=== PATIENT | male | born 1945 | race Caucasian/White ===

== ENCOUNTER 2021-08-14 18:27 | Inpatient (IN) | payer MEDICARE ==
[~2021-08-14] VITALS: Ht 182.9 cm; Wt 95.0 kg
[2021-08-14] MEDS ORDERED: TRELEGY ELLIPT1 EACH PO (18:56)
[2021-08-14] MEDS ORDERED: CRESTOR10 MG PO (18:56)
[2021-08-14] MEDS ORDERED: CLOPIDOGREL75 MG PO (18:56)
[2021-08-14] MEDS ORDERED: FLOMAX0.4 MG PO (18:56)
[2021-08-14] MEDS ORDERED: VITAMIN C1000 MG PO (18:56)
[2021-08-14] MEDS ORDERED: PREVAGEN PO (18:56)
[2021-08-14] MEDS ORDERED: PANTOPRAZOLE SO40 MG PO (18:56)
[2021-08-14] MEDS ORDERED: FEROSUL325 MG PO (18:56)
[2021-08-14] MEDS ORDERED: BASAGLAR K100 UNIT/1 SQ (18:56)
[2021-08-14] MEDS ORDERED: NEURONTIN100 MG PO (18:56)
[2021-08-14] MEDS ORDERED: ZINC PO (18:56)
[2021-08-14] MEDS ORDERED: CYMBALTA30 MG PO (18:56)
[2021-08-14] MEDS ORDERED: ENTRESTO 24 MG1 EACH PO (18:56)
[2021-08-14] MEDS ORDERED: GLIPIZIDE ER5 MG PO (18:56)
[2021-08-14 19:00] LABS: BASOPHILS # (AUTO) 0.1 (0.0-0.1); BASOPHILS % 0.6 % (0.0-1.0); EOSINOPHILS # (AUTO) 0.2 (0.0-0.4); EOSINOPHILS % 1.2 % (0.0-6.0); HEMOGLOBIN 11.2 g/dL (14.0-18.0); LYMPHOCYTES # (AUTO) 1.8 (1.0-3.2); LYMPHOCYTES % 11.8 % (18.0-39.1); MEAN CORPUSCULAR HGB CONC 31.1 g/dL (31-35); MEAN CORPUSCULAR VOLUME 83.5 fL (81-99); MONOCYTES # (AUTO) 1.6 (0.2-0.8); MONOCYTES % 10.4 % (4.4-11.3); NEUTROPHILS # (AUTO) 11.5 (2.1-6.9); NEUTROPHILS % 75.4 % (38.7-80.0); PLATELET COUNT 317 x10e3/uL (140-360); RED BLOOD COUNT 4.31 x10e6/uL (4.3-5.7); RED CELL DISTRIBUTION WIDTH 15.9 % (11.7-14.4)
[2021-08-14] MEDS ORDERED: ALBUTEROL/IPRATROPIUM 3 ML NEB NEB ONE ×2 (19:15→22:00)
[2021-08-14] MEDS ORDERED: CEFTRIAXONE 1 GM in SODIUM CHLORIDE 0.9% 50ML 50 ML IV ONE (19:15)
[2021-08-14] MEDS ORDERED: METHYLPREDNISOLONE SOD SUCC 125 MG/2ML VIAL IV ONE (19:15)
[2021-08-14 19:16] LABS: INR 1.22; PROTHROMBIN TIME 16.4 seconds (11.9-14.5)
[2021-08-14 19:17] LABS: PARTIAL THROMBOPLASTIN TIME 39.5 seconds (23.8-35.5)
[2021-08-14 19:26] LABS: ALBUMIN 2.9 g/dL (3.5-5.0); ALBUMIN/GLOBULIN RATIO 0.6 (0.8-2.0); ANION GAP 15.3 mmol/L (8-16); CALCIUM 9.2 mg/dL (8.4-10.2); CREATININE, SERUM 1.43 mg/dL (0.72-1.25); POTASSIUM 4.3 mmol/L (3.5-5.1)
[2021-08-14] MEDS ORDERED: SODIUM CHLORIDE 0.9% 1000ML 1,000 ML ONE (20:07)
[2021-08-14 20:16] LABS: CREATINE KINASE MB 0.8 ng/mL (0-5.0)
[2021-08-14] MEDS ORDERED: SODIUM CHLORIDE 0.9% 1000ML 1,000 ML IV STA (20:19)
[2021-08-14] MEDS ORDERED: DONNATAL/LIDOCAINE/MAALOX 30 ML SUSP PO ONE (21:30)
[2021-08-14] MEDS ORDERED: BELLADONNA ALK/PHENOBARBITAL 5 ML UDC ONE (22:36)
[2021-08-14] MEDS ORDERED: LIDOCAINE VISC 2% SOLN 15 ML UDC ONE (22:36)
[2021-08-14 23:01] LABS: CLARITY,URINE CLEAR (CLEAR); COLOR,URINE YELLOW (YELLOW); KETONES,URINE TRACE (NEGATIVE); LEUKOCYTE ESTERASE ,URINE NEGATIVE (NEGATIVE); NITRITE,URINE NEGATIVE (NEGATIVE); PROTEIN,URINE DIPSTICK NEGATIVE (NEGATIVE); URINE UROBILINOGEN 0.2 mg/dL (0.2 - 1)
[2021-08-14 23:07] LABS: RBC,URINE 0-5 /HPF (0-5); WBC,URINE (MAN) 0-5 /HPF (0-5)
[2021-08-14 23:08] LABS: BACTERIA,URINE FEW /HPF; EPITHELIAL CELLS,URINE FEW /LPF
[2021-08-14] MEDS ORDERED: CEFTRIAXONE 1 GM in SODIUM CHLORIDE 0.9% 50ML 50 ML IV SCH (23:45)
[2021-08-15 05:54] LABS: BASOPHILS % 0.2 % (0.0-1.0); HEMOGLOBIN 9.6 g/dL (14.0-18.0); LYMPHOCYTES # (AUTO) 0.7 (1.0-3.2); LYMPHOCYTES % 5.9 % (18.0-39.1); MEAN CORPUSCULAR HEMOGLOBIN 25.8 pg (28-32); MEAN CORPUSCULAR VOLUME 83.3 fL (81-99); MONOCYTES # (AUTO) 0.2 (0.2-0.8); MONOCYTES % 1.4 % (4.4-11.3); NEUTROPHILS # (AUTO) 10.2 (2.1-6.9); NEUTROPHILS % 92.1 % (38.7-80.0); PLATELET COUNT 245 x10e3/uL (140-360); RED BLOOD COUNT 3.72 x10e6/uL (4.3-5.7); RED CELL DISTRIBUTION WIDTH 15.9 % (11.7-14.4)
[2021-08-15 06:13] LABS: ANION GAP 14.7 mmol/L (8-16); CALCIUM 8.5 mg/dL (8.4-10.2); CREATININE, SERUM 1.36 mg/dL (0.72-1.25); POTASSIUM 4.7 mmol/L (3.5-5.1)
[2021-08-15 06:49] LABS: CREATINE KINASE MB 0.8 ng/mL (0-5.0)
[2021-08-15] MEDS ORDERED: DEXTROSE 50% SYRINGE 50 ML IV PRN (08:30)
[2021-08-15] MEDS: FERROUS SULFATE 325 MG TAB PO SCH ×2 (08:53→18:04)
[2021-08-15] MEDS: TAMSULOSIN HCL 0.4 MG CAP PO SCH (08:53)
[2021-08-15] MEDS: ASCORBIC ACID 500 MG TAB PO SCH (08:53)
[2021-08-15] MEDS: CLOPIDOGREL BISULFATE 75 MG TAB PO SCH (08:53)
[2021-08-15] MEDS: DULOXETINE HCL 30 MG DELAYED RELEASE PO SCH ×2 (08:53→18:04)
[2021-08-15] MEDS: VALSARTAN/SACUBITRIL 24MG/26MG 1 EA TAB PO SCH ×2 (09:05→18:04)
[2021-08-15] MEDS: GLIPIZIDE 5 MG TAB ER PO SCH (09:05)
[2021-08-15] MEDS: ZINC SULFATE 50 MG CAP PO SCH (09:05)
[2021-08-15] MEDS: PANTOPRAZOLE SOD 40 MG TABEC PO SCH (09:05)
[2021-08-15 11:30] VITALS: BP 113/70
[2021-08-15 12:21] VITALS: BP 113/70
[2021-08-15] MEDS: INSULIN LISPRO 100 UNIT/1 ML 3ML VIAL SQ SCH ×3 (13:45→21:15)
[2021-08-15 15:55] VITALS: BP 98/63
[2021-08-15 16:20] LABS: CREATINE KINASE MB 1.5 ng/mL (0-5.0)
[2021-08-15 20:00] VITALS: BP 107/63
[2021-08-15] MEDS: SIMVASTATIN 40 MG TAB PO SCH (21:07)
[2021-08-15] MEDS: GABAPENTIN 100 MG CAP PO SCH (21:07)
[2021-08-15] MEDS: CEFTRIAXONE 1 GM in SODIUM CHLORIDE 0.9% 50ML 50 ML IV SCH (21:07)
[2021-08-15 21:30] VITALS: BP 107/63
[2021-08-16] VITALS (8 sets, daily range): BP systolic 90–101; BP diastolic 53–69
[2021-08-16] MEDS: PANTOPRAZOLE SOD 40 MG TABEC PO SCH (09:44)
[2021-08-16] MEDS: VALSARTAN/SACUBITRIL 24MG/26MG 1 EA TAB PO SCH ×2 (09:45→18:04)
[2021-08-16] MEDS: DULOXETINE HCL 30 MG DELAYED RELEASE PO SCH ×2 (09:45→18:04)
[2021-08-16] MEDS: ASCORBIC ACID 500 MG TAB PO SCH (09:45)
[2021-08-16] MEDS: INSULIN LISPRO 100 UNIT/1 ML 3ML VIAL SQ SCH ×4 (09:45→20:36)
[2021-08-16] MEDS: GLIPIZIDE 5 MG TAB ER PO SCH (09:45)
[2021-08-16] MEDS: FUROSEMIDE INJ 10 MG/ML 2 ML VIAL IV SCH ×2 (09:45→18:04)
[2021-08-16] MEDS: TAMSULOSIN HCL 0.4 MG CAP PO SCH (09:45)
[2021-08-16] MEDS: CLOPIDOGREL BISULFATE 75 MG TAB PO SCH (09:45)
[2021-08-16] MEDS: ZINC SULFATE 50 MG CAP PO SCH (09:45)
[2021-08-16] MEDS: FERROUS SULFATE 325 MG TAB PO SCH ×2 (09:45→18:04)
[2021-08-16] MEDS ORDERED: DONNATAL/LIDOCAINE/MAALOX 30 ML SUSP PO ONE (13:30)
[2021-08-16] MEDS: METOPROLOL SUCCINATE 25 MG TAB XL PO SCH (14:00)
[2021-08-16] MEDS: SIMVASTATIN 40 MG TAB PO SCH (20:35)
[2021-08-16] MEDS: GABAPENTIN 100 MG CAP PO SCH (20:35)
[2021-08-16] MEDS: CEFTRIAXONE 1 GM in SODIUM CHLORIDE 0.9% 50ML 50 ML IV SCH (20:35)
[2021-08-17] VITALS (7 sets, daily range): BP systolic 91–97; BP diastolic 53–66
[2021-08-17] MEDS: CALCIUM CARBONATE 500 MG CHEWABLE TABS PO PRN (01:03)
[2021-08-17] MEDS: ACETAMINOPHEN 325 MG TAB PO PRN ×2 (01:03→20:01)
[2021-08-17] MEDS: INSULIN LISPRO 100 UNIT/1 ML 3ML VIAL SQ SCH ×4 (07:30→21:00)
[2021-08-17] MEDS: PANTOPRAZOLE SOD 40 MG TABEC PO SCH (08:52)
[2021-08-17] MEDS: GLIPIZIDE 5 MG TAB ER PO SCH (08:53)
[2021-08-17] MEDS: CLOPIDOGREL BISULFATE 75 MG TAB PO SCH (09:00)
[2021-08-17] MEDS: DULOXETINE HCL 30 MG DELAYED RELEASE PO SCH ×2 (09:00→17:00)
[2021-08-17] MEDS: ASCORBIC ACID 500 MG TAB PO SCH (09:00)
[2021-08-17] MEDS: FERROUS SULFATE 325 MG TAB PO SCH ×2 (09:00→17:00)
[2021-08-17] MEDS: TAMSULOSIN HCL 0.4 MG CAP PO SCH (09:00)
[2021-08-17] MEDS: FUROSEMIDE INJ 10 MG/ML 2 ML VIAL IV SCH ×2 (09:00→17:00)
[2021-08-17] MEDS: VALSARTAN/SACUBITRIL 24MG/26MG 1 EA TAB PO SCH ×2 (09:00→17:00)
[2021-08-17] MEDS: ZINC SULFATE 50 MG CAP PO SCH (09:00)
[2021-08-17] MEDS: METOPROLOL SUCCINATE 25 MG TAB XL PO SCH (09:00)
[2021-08-17] MEDS: CEFTRIAXONE 1 GM in SODIUM CHLORIDE 0.9% 50ML 50 ML IV SCH (20:00)
[2021-08-17] MEDS: SIMVASTATIN 40 MG TAB PO SCH (21:00)
[2021-08-17] MEDS: GABAPENTIN 100 MG CAP PO SCH (21:00)
[2021-08-18] VITALS (10 sets, daily range): BP systolic 87–104; BP diastolic 46–64
[2021-08-18 05:17] LABS: BASOPHILS # (AUTO) 0.1 (0.0-0.1); BASOPHILS % 0.6 % (0.0-1.0); EOSINOPHILS # (AUTO) 0.3 (0.0-0.4); EOSINOPHILS % 2.7 % (0.0-6.0); HEMATOCRIT 34.2 % (38.2-49.6); HEMOGLOBIN 10.1 g/dL (14.0-18.0); LYMPHOCYTES # (AUTO) 1.9 (1.0-3.2); LYMPHOCYTES % 15.3 % (18.0-39.1); MEAN CORPUSCULAR HEMOGLOBIN 25.7 pg (28-32); MEAN CORPUSCULAR HGB CONC 29.5 g/dL (31-35); MONOCYTES # (AUTO) 1.3 (0.2-0.8); MONOCYTES % 10.1 % (4.4-11.3); NEUTROPHILS # (AUTO) 8.9 (2.1-6.9); NEUTROPHILS % 70.7 % (38.7-80.0); PLATELET COUNT 227 x10e3/uL (140-360); RED BLOOD COUNT 3.93 x10e6/uL (4.3-5.7)
[2021-08-18 05:49] LABS: ALBUMIN 2.5 g/dL (3.5-5.0); ALBUMIN/GLOBULIN RATIO 0.7 (0.8-2.0); ANION GAP 14.8 mmol/L (8-16); CALCIUM 8.3 mg/dL (8.4-10.2); CREATININE, SERUM 1.08 mg/dL (0.72-1.25); POTASSIUM 3.8 mmol/L (3.5-5.1)
[2021-08-18] MEDS: PANTOPRAZOLE SOD 40 MG TABEC PO SCH (07:30)
[2021-08-18] MEDS: INSULIN LISPRO 100 UNIT/1 ML 3ML VIAL SQ SCH ×4 (07:30→21:00)
[2021-08-18] MEDS: GLIPIZIDE 5 MG TAB ER PO SCH (08:00)
[2021-08-18] MEDS: TAMSULOSIN HCL 0.4 MG CAP PO SCH (08:56)
[2021-08-18] MEDS: CLOPIDOGREL BISULFATE 75 MG TAB PO SCH (08:56)
[2021-08-18] MEDS: METOPROLOL SUCCINATE 25 MG TAB XL PO SCH (08:56)
[2021-08-18] MEDS: ZINC SULFATE 50 MG CAP PO SCH (08:57)
[2021-08-18] MEDS: ASCORBIC ACID 500 MG TAB PO SCH (08:57)
[2021-08-18] MEDS: DULOXETINE HCL 30 MG DELAYED RELEASE PO SCH ×2 (09:00→17:00)
[2021-08-18] MEDS: FERROUS SULFATE 325 MG TAB PO SCH ×2 (09:00→17:00)
[2021-08-18] MEDS: FUROSEMIDE INJ 10 MG/ML 2 ML VIAL IV SCH (09:00)
[2021-08-18] MEDS: VALSARTAN/SACUBITRIL 24MG/26MG 1 EA TAB PO SCH ×2 (09:00→17:00)
[2021-08-18] MEDS: ACETAMINOPHEN 325 MG TAB PO PRN (18:09)
[2021-08-18] MEDS: CEFTRIAXONE 1 GM in SODIUM CHLORIDE 0.9% 50ML 50 ML IV SCH (21:09)
[2021-08-18] MEDS: GABAPENTIN 100 MG CAP PO SCH (21:15)
[2021-08-18] MEDS: SIMVASTATIN 40 MG TAB PO SCH (21:15)
[2021-08-19 04:59] VITALS: BP 96/50
[2021-08-19 04:59] LABS: BASOPHILS # (AUTO) 0.1 (0.0-0.1); BASOPHILS % 0.6 % (0.0-1.0); EOSINOPHILS # (AUTO) 0.4 (0.0-0.4); EOSINOPHILS % 3.1 % (0.0-6.0); HEMATOCRIT 30.8 % (38.2-49.6); HEMOGLOBIN 9.4 g/dL (14.0-18.0); LYMPHOCYTES # (AUTO) 1.9 (1.0-3.2); LYMPHOCYTES % 14.8 % (18.0-39.1); MEAN CORPUSCULAR HEMOGLOBIN 25.8 pg (28-32); MEAN CORPUSCULAR HGB CONC 30.5 g/dL (31-35); MEAN CORPUSCULAR VOLUME 84.4 fL (81-99); MONOCYTES # (AUTO) 1.1 (0.2-0.8); MONOCYTES % 8.7 % (4.4-11.3); NEUTROPHILS # (AUTO) 9.4 (2.1-6.9); NEUTROPHILS % 72.3 % (38.7-80.0); PLATELET COUNT 217 x10e3/uL (140-360); RED BLOOD COUNT 3.65 x10e6/uL (4.3-5.7); RED CELL DISTRIBUTION WIDTH 15.8 % (11.7-14.4)
[2021-08-19 05:28] LABS: ALBUMIN 2.4 g/dL (3.5-5.0); ALBUMIN/GLOBULIN RATIO 0.6 (0.8-2.0); ANION GAP 13.7 mmol/L (8-16); CALCIUM 8.5 mg/dL (8.4-10.2); CREATININE, SERUM 1.23 mg/dL (0.72-1.25); POTASSIUM 3.7 mmol/L (3.5-5.1)
[2021-08-19] MEDS: INSULIN LISPRO 100 UNIT/1 ML 3ML VIAL SQ SCH ×4 (07:30→21:00)
[2021-08-19 08:45] VITALS: BP 94/60
[2021-08-19 08:49] VITALS: BP 94/60
[2021-08-19] MEDS: METOPROLOL SUCCINATE 25 MG TAB XL PO SCH (09:00)
[2021-08-19] MEDS: PANTOPRAZOLE SOD 40 MG TABEC PO SCH (09:06)
[2021-08-19] MEDS: GLIPIZIDE 5 MG TAB ER PO SCH (09:06)
[2021-08-19] MEDS: DULOXETINE HCL 30 MG DELAYED RELEASE PO SCH ×2 (09:06→17:24)
[2021-08-19] MEDS: CLOPIDOGREL BISULFATE 75 MG TAB PO SCH (09:07)
[2021-08-19] MEDS: TAMSULOSIN HCL 0.4 MG CAP PO SCH (09:07)
[2021-08-19] MEDS: ASCORBIC ACID 500 MG TAB PO SCH (09:07)
[2021-08-19] MEDS: ZINC SULFATE 50 MG CAP PO SCH (09:07)
[2021-08-19] MEDS: FERROUS SULFATE 325 MG TAB PO SCH ×2 (09:09→17:24)
[2021-08-19] MEDS: ACETAMINOPHEN 325 MG TAB PO PRN ×2 (09:13→22:45)
[2021-08-19 12:03] VITALS: BP 86/62
[2021-08-19] MEDS ORDERED: MIDODRINE HCL 5 MG TABLET PO SCH (15:45)
[2021-08-19 16:44] VITALS: BP 107/53
[2021-08-19 19:47] VITALS: BP 108/54
[2021-08-19] MEDS: CEFTRIAXONE 1 GM in SODIUM CHLORIDE 0.9% 50ML 50 ML IV SCH (20:50)
[2021-08-19] MEDS: GABAPENTIN 100 MG CAP PO SCH (21:00)
[2021-08-19] MEDS: SIMVASTATIN 40 MG TAB PO SCH (21:00)
[2021-08-19] MEDS ORDERED: MIDODRINE 2.5 MG TAB PO ONE (23:15)
[2021-08-20] VITALS (8 sets, daily range): BP systolic 90–116; BP diastolic 60–73
[2021-08-20 05:01] LABS: HEMATOCRIT 30.8 % (38.2-49.6); HEMOGLOBIN 9.4 g/dL (14.0-18.0); MEAN CORPUSCULAR HEMOGLOBIN 25.8 pg (28-32); MEAN CORPUSCULAR HGB CONC 30.5 g/dL (31-35); MEAN CORPUSCULAR VOLUME 84.4 fL (81-99); RED BLOOD COUNT 3.65 x10e6/uL (4.3-5.7); RED CELL DISTRIBUTION WIDTH 15.9 % (11.7-14.4)
[2021-08-20 05:02] LABS: BASOPHILS # (AUTO) 0.1 (0.0-0.1); BASOPHILS % 0.7 % (0.0-1.0); EOSINOPHILS # (AUTO) 0.4 (0.0-0.4); EOSINOPHILS % 3.5 % (0.0-6.0); LYMPHOCYTES # (AUTO) 1.9 (1.0-3.2); LYMPHOCYTES % 15.2 % (18.0-39.1); MONOCYTES # (AUTO) 1.3 (0.2-0.8); MONOCYTES % 10.2 % (4.4-11.3); NEUTROPHILS # (AUTO) 8.6 (2.1-6.9); NEUTROPHILS % 69.8 % (38.7-80.0); PLATELET COUNT 209 x10e3/uL (140-360)
[2021-08-20 05:42] LABS: ALBUMIN 2.4 g/dL (3.5-5.0); ALBUMIN/GLOBULIN RATIO 0.6 (0.8-2.0); ANION GAP 14.1 mmol/L (8-16); CALCIUM 8.4 mg/dL (8.4-10.2); CREATININE, SERUM 1.28 mg/dL (0.72-1.25); POTASSIUM 4.1 mmol/L (3.5-5.1)
[2021-08-20] MEDS: INSULIN LISPRO 100 UNIT/1 ML 3ML VIAL SQ SCH ×4 (07:30→20:56)
[2021-08-20] MEDS: FERROUS SULFATE 325 MG TAB PO SCH ×2 (09:30→16:57)
[2021-08-20] MEDS: DULOXETINE HCL 30 MG DELAYED RELEASE PO SCH ×2 (09:30→16:57)
[2021-08-20] MEDS: CLOPIDOGREL BISULFATE 75 MG TAB PO SCH (09:30)
[2021-08-20] MEDS: METOPROLOL SUCCINATE 25 MG TAB XL PO SCH (09:30)
[2021-08-20] MEDS: ASCORBIC ACID 500 MG TAB PO SCH (09:30)
[2021-08-20] MEDS: PANTOPRAZOLE SOD 40 MG TABEC PO SCH (09:30)
[2021-08-20] MEDS: TAMSULOSIN HCL 0.4 MG CAP PO SCH (09:30)
[2021-08-20] MEDS: GLIPIZIDE 5 MG TAB ER PO SCH (09:30)
[2021-08-20] MEDS: ZINC SULFATE 50 MG CAP PO SCH (09:30)
[2021-08-20] MEDS ORDERED: SODIUM CHLORIDE 0.9% 250ML 250 ML ONE (20:14)
[2021-08-20] MEDS: GABAPENTIN 100 MG CAP PO SCH (20:56)
[2021-08-20] MEDS: SIMVASTATIN 40 MG TAB PO SCH (20:56)
[2021-08-20] MEDS: CEFTRIAXONE 1 GM in SODIUM CHLORIDE 0.9% 50ML 50 ML IV SCH (21:00)
[2021-08-20] MEDS: HYDROXYZINE HCL 25 MG TAB PO PRN (21:47)
[2021-08-20] MEDS: CALCIUM CARBONATE 500 MG CHEWABLE TABS PO PRN (21:47)
[2021-08-21] VITALS (9 sets, daily range): BP systolic 89–118; BP diastolic 54–66
[2021-08-21] MEDS: INSULIN LISPRO 100 UNIT/1 ML 3ML VIAL SQ SCH ×4 (07:30→20:16)
[2021-08-21] MEDS: CLOPIDOGREL BISULFATE 75 MG TAB PO SCH (09:27)
[2021-08-21] MEDS: FERROUS SULFATE 325 MG TAB PO SCH ×2 (09:27→16:16)
[2021-08-21] MEDS: DULOXETINE HCL 30 MG DELAYED RELEASE PO SCH ×2 (09:27→16:16)
[2021-08-21] MEDS: PANTOPRAZOLE SOD 40 MG TABEC PO SCH (09:27)
[2021-08-21] MEDS: METOPROLOL SUCCINATE 25 MG TAB XL PO SCH (09:27)
[2021-08-21] MEDS: GLIPIZIDE 5 MG TAB ER PO SCH (09:27)
[2021-08-21] MEDS: TAMSULOSIN HCL 0.4 MG CAP PO SCH (09:27)
[2021-08-21] MEDS: ZINC SULFATE 50 MG CAP PO SCH (09:28)
[2021-08-21] MEDS: ASCORBIC ACID 500 MG TAB PO SCH (09:28)
[2021-08-21] MEDS: ALBUTEROL/IPRATROPIUM 3 ML NEB NEB PRN ×3 (09:43→18:48)
[2021-08-21] MEDS: CALCIUM CARBONATE 500 MG CHEWABLE TABS PO PRN (13:50)
[2021-08-21] MEDS: CEFTRIAXONE 1 GM in SODIUM CHLORIDE 0.9% 50ML 50 ML IV SCH (20:00)
[2021-08-21] MEDS: GABAPENTIN 100 MG CAP PO SCH (20:16)
[2021-08-21] MEDS: SIMVASTATIN 40 MG TAB PO SCH (20:16)
[2021-08-21] MEDS: HYDROXYZINE HCL 25 MG TAB PO PRN (22:39)
[2021-08-22] VITALS (11 sets, daily range): BP systolic 97–142; BP diastolic 50–88
[2021-08-22 05:07] LABS: INR 1.16; PROTHROMBIN TIME 15.7 seconds (11.9-14.5)
[2021-08-22 05:08] LABS: PARTIAL THROMBOPLASTIN TIME 43.7 seconds (23.8-35.5)
[2021-08-22] MEDS: INSULIN LISPRO 100 UNIT/1 ML 3ML VIAL SQ SCH ×4 (07:30→21:06)
[2021-08-22] MEDS: PANTOPRAZOLE SOD 40 MG TABEC PO SCH (07:30)
[2021-08-22] MEDS: GLIPIZIDE 5 MG TAB ER PO SCH (08:00)
[2021-08-22] MEDS: DULOXETINE HCL 30 MG DELAYED RELEASE PO SCH ×2 (08:21→15:24)
[2021-08-22] MEDS: FERROUS SULFATE 325 MG TAB PO SCH ×2 (08:22→15:24)
[2021-08-22] MEDS ORDERED: HEPARIN SOD (PORCINE) 1000 UNIT/ML 30ML ONE (10:43)
[2021-08-22] MEDS ORDERED: LIDOCAINE HCL 2% LOCAL 20 ML VIAL ONE (10:43)
[2021-08-22] MEDS ORDERED: NITROGLYCERIN/D5W 200 MCG/ML 250 ML ONE (10:43)
[2021-08-22] MEDS ORDERED: IOPAMIDOL 370 MG/ML 200 ML INFUS..BTL INJ ONE (10:43)
[2021-08-22] MEDS ORDERED: MIDAZOLAM HCL 2 MG/2 ML VIAL ONE (10:43)
[2021-08-22] MEDS ORDERED: SODIUM CHLORIDE 0.9% 1000ML 1,000 ML ONE (10:43)
[2021-08-22] MEDS ORDERED: HEPARIN SOD/SOD CHLORIDE 2,000 ML ONE (10:43)
[2021-08-22] MEDS ORDERED: FENTANYL CITRATE/PF 100MCG/2 ML INJ ONE (10:43)
[2021-08-22] MEDS: FUROSEMIDE INJ 10 MG/ML 4 ML VIAL IV SCH (15:24)
[2021-08-22] MEDS: TAMSULOSIN HCL 0.4 MG CAP PO SCH (15:24)
[2021-08-22] MEDS: ASCORBIC ACID 500 MG TAB PO SCH (15:24)
[2021-08-22] MEDS: ZINC SULFATE 50 MG CAP PO SCH (15:24)
[2021-08-22] MEDS: SUCRALFATE 1 GM TAB PO SCH (16:23)
[2021-08-22] MEDS: METOPROLOL SUCCINATE 25 MG TAB XL PO SCH (16:23)
[2021-08-22] MEDS: GABAPENTIN 100 MG CAP PO SCH (20:15)
[2021-08-22] MEDS: SIMVASTATIN 40 MG TAB PO SCH (20:15)
[2021-08-22] MEDS: CEFTRIAXONE 1 GM in SODIUM CHLORIDE 0.9% 50ML 50 ML IV SCH (20:17)
[2021-08-23] VITALS (7 sets, daily range): BP systolic 87–125; BP diastolic 49–63
[2021-08-23] MEDS: INSULIN LISPRO 100 UNIT/1 ML 3ML VIAL SQ SCH ×4 (07:30→20:52)
[2021-08-23] MEDS: TAMSULOSIN HCL 0.4 MG CAP PO SCH (09:23)
[2021-08-23] MEDS: PANTOPRAZOLE SOD 40 MG TABEC PO SCH (09:23)
[2021-08-23] MEDS: FUROSEMIDE INJ 10 MG/ML 4 ML VIAL IV SCH (09:23)
[2021-08-23] MEDS: SUCRALFATE 1 GM TAB PO SCH ×3 (09:23→16:30)
[2021-08-23] MEDS: FERROUS SULFATE 325 MG TAB PO SCH ×2 (09:23→17:16)
[2021-08-23] MEDS: GLIPIZIDE 5 MG TAB ER PO SCH (09:23)
[2021-08-23] MEDS: ASCORBIC ACID 500 MG TAB PO SCH (09:24)
[2021-08-23] MEDS: METOPROLOL SUCCINATE 25 MG TAB XL PO SCH (09:24)
[2021-08-23] MEDS: DULOXETINE HCL 30 MG DELAYED RELEASE PO SCH ×2 (09:24→17:16)
[2021-08-23] MEDS: ZINC SULFATE 50 MG CAP PO SCH (09:24)
[2021-08-23] MEDS: CEFTRIAXONE 1 GM in SODIUM CHLORIDE 0.9% 50ML 50 ML IV SCH (20:51)
[2021-08-23] MEDS: GABAPENTIN 100 MG CAP PO SCH (20:51)
[2021-08-23] MEDS: SIMVASTATIN 40 MG TAB PO SCH (20:51)
[2021-08-23] MEDS: HYDROXYZINE HCL 25 MG TAB PO PRN (22:59)
[2021-08-24] VITALS (8 sets, daily range): BP systolic 87–111; BP diastolic 49–69
[2021-08-24] MEDS: INSULIN LISPRO 100 UNIT/1 ML 3ML VIAL SQ SCH ×4 (07:30→21:00)
[2021-08-24] MEDS: SUCRALFATE 1 GM TAB PO SCH ×3 (07:30→15:49)
[2021-08-24] MEDS: PANTOPRAZOLE SOD 40 MG TABEC PO SCH (07:30)
[2021-08-24] MEDS: GLIPIZIDE 5 MG TAB ER PO SCH (08:00)
[2021-08-24] MEDS: DULOXETINE HCL 30 MG DELAYED RELEASE PO SCH ×2 (09:00→15:44)
[2021-08-24] MEDS: ZINC SULFATE 50 MG CAP PO SCH (09:00)
[2021-08-24] MEDS: FERROUS SULFATE 325 MG TAB PO SCH ×2 (09:00→15:45)
[2021-08-24] MEDS: ASCORBIC ACID 500 MG TAB PO SCH (09:00)
[2021-08-24] MEDS: FUROSEMIDE INJ 10 MG/ML 4 ML VIAL IV SCH (09:00)
[2021-08-24] MEDS: METOPROLOL SUCCINATE 25 MG TAB XL PO SCH (09:00)
[2021-08-24] MEDS: TAMSULOSIN HCL 0.4 MG CAP PO SCH (15:45)
[2021-08-24] MEDS: BENZONATATE 100 MG CAP PO SCH ×2 (15:46→20:28)
[2021-08-24] MEDS: ALBUTEROL/IPRATROPIUM 3 ML NEB NEB PRN (19:35)
[2021-08-24] MEDS: GABAPENTIN 100 MG CAP PO SCH (20:28)
[2021-08-24] MEDS: SIMVASTATIN 40 MG TAB PO SCH (20:28)
[2021-08-24] MEDS: CEFTRIAXONE 1 GM in SODIUM CHLORIDE 0.9% 50ML 50 ML IV SCH (21:00)
[2021-08-25] VITALS (13 sets, daily range): BP systolic 84–103; BP diastolic 51–69
[2021-08-25] MEDS: ALBUTEROL/IPRATROPIUM 3 ML NEB NEB PRN ×2 (07:17→13:20)
[2021-08-25] MEDS: PANTOPRAZOLE SOD 40 MG TABEC PO SCH (07:30)
[2021-08-25] MEDS: INSULIN LISPRO 100 UNIT/1 ML 3ML VIAL SQ SCH ×4 (07:30→21:02)
[2021-08-25] MEDS: SUCRALFATE 1 GM TAB PO SCH ×3 (07:30→17:03)
[2021-08-25] MEDS: GLIPIZIDE 5 MG TAB ER PO SCH (08:00)
[2021-08-25] MEDS: FUROSEMIDE INJ 10 MG/ML 4 ML VIAL IV SCH (08:34)
[2021-08-25] MEDS: TAMSULOSIN HCL 0.4 MG CAP PO SCH (09:00)
[2021-08-25] MEDS: METOPROLOL SUCCINATE 25 MG TAB XL PO SCH (09:00)
[2021-08-25] MEDS: FERROUS SULFATE 325 MG TAB PO SCH ×2 (09:00→17:03)
[2021-08-25] MEDS: ASCORBIC ACID 500 MG TAB PO SCH (09:00)
[2021-08-25] MEDS ORDERED: FUROSEMIDE INJ 10 MG/ML 4 ML VIAL IV ONE ×2 (09:00→19:35)
[2021-08-25] MEDS: DULOXETINE HCL 30 MG DELAYED RELEASE PO SCH ×2 (09:00→17:03)
[2021-08-25] MEDS: BENZONATATE 100 MG CAP PO SCH ×3 (09:00→21:01)
[2021-08-25] MEDS: ZINC SULFATE 50 MG CAP PO SCH (09:00)
[2021-08-25] MEDS ORDERED: MIDAZOLAM HCL 2 MG/2 ML VIAL ONE ×2 (10:04→12:06)
[2021-08-25] MEDS ORDERED: FENTANYL CITRATE/PF 100MCG/2 ML INJ ONE ×2 (10:05→12:06)
[2021-08-25] MEDS ORDERED: GENTAMICIN SULFATE 40 MG/ML 2 ML VIAL ONE ×2 (10:05→10:59)
[2021-08-25] MEDS ORDERED: LIDOCAINE HCL 2% LOCAL 20 ML VIAL ONE (10:05)
[2021-08-25] MEDS ORDERED: SODIUM CHLORIDE 0.9% 1000ML 2,000 ML ONE (10:06)
[2021-08-25] MEDS ORDERED: Vancomycin IV 1 GM VIAL ONE (10:06)
[2021-08-25] MEDS ORDERED: SODIUM CHLORIDE 0.9% 500ML 500 ML ONE (10:06)
[2021-08-25] MEDS ORDERED: SODIUM CHLORIDE 0.9% 250ML 250 ML ONE (10:06)
[2021-08-25] MEDS ORDERED: IOPAMIDOL 300MG/ML 50ML INFUS..BTL IV ONE (10:16)
[2021-08-25 10:27] LABS: BASOPHILS # (AUTO) 0.1 (0.0-0.1); BASOPHILS % 0.6 % (0.0-1.0); EOSINOPHILS # (AUTO) 0.3 (0.0-0.4); EOSINOPHILS % 2.7 % (0.0-6.0); HEMATOCRIT 29.4 % (38.2-49.6); HEMOGLOBIN 8.9 g/dL (14.0-18.0); LYMPHOCYTES # (AUTO) 1.3 (1.0-3.2); LYMPHOCYTES % 12.6 % (18.0-39.1); MEAN CORPUSCULAR HEMOGLOBIN 25.6 pg (28-32); MEAN CORPUSCULAR HGB CONC 30.3 g/dL (31-35); MEAN CORPUSCULAR VOLUME 84.7 fL (81-99); MONOCYTES % 10.2 % (4.4-11.3); NEUTROPHILS # (AUTO) 7.5 (2.1-6.9); NEUTROPHILS % 73.4 % (38.7-80.0); PLATELET COUNT 241 x10e3/uL (140-360); RED BLOOD COUNT 3.47 x10e6/uL (4.3-5.7); RED CELL DISTRIBUTION WIDTH 16.9 % (11.7-14.4)
[2021-08-25 10:50] LABS: ALBUMIN 2.6 g/dL (3.5-5.0); ALBUMIN/GLOBULIN RATIO 0.7 (0.8-2.0); ANION GAP 14.6 mmol/L (8-16); CALCIUM 8.4 mg/dL (8.4-10.2); CREATININE, SERUM 1.19 mg/dL (0.72-1.25); POTASSIUM 3.6 mmol/L (3.5-5.1)
[2021-08-25] MEDS ORDERED: Morphine 2mg Syringe 2 MG/ML SYR IV PRN (12:45)
[2021-08-25] MEDS: GABAPENTIN 100 MG CAP PO SCH (21:01)
[2021-08-25] MEDS: SIMVASTATIN 40 MG TAB PO SCH (21:01)
[2021-08-25] MEDS ORDERED: SODIUM CHLORIDE 0.9% 200 ML ONE (21:02)
[2021-08-26] VITALS (21 sets, daily range): BP systolic 87–139; BP diastolic 49–91
[2021-08-26] MEDS: INSULIN LISPRO 100 UNIT/1 ML 3ML VIAL SQ SCH ×4 (07:30→21:00)
[2021-08-26] MEDS: PANTOPRAZOLE SOD 40 MG TABEC PO SCH (07:58)
[2021-08-26] MEDS: SUCRALFATE 1 GM TAB PO SCH ×3 (07:58→16:30)
[2021-08-26] MEDS: DULOXETINE HCL 30 MG DELAYED RELEASE PO SCH ×2 (08:34→17:02)
[2021-08-26] MEDS: FERROUS SULFATE 325 MG TAB PO SCH ×2 (08:34→17:02)
[2021-08-26] MEDS: TAMSULOSIN HCL 0.4 MG CAP PO SCH (08:35)
[2021-08-26] MEDS: BENZONATATE 100 MG CAP PO SCH ×3 (08:35→21:00)
[2021-08-26] MEDS: ZINC SULFATE 50 MG CAP PO SCH (08:36)
[2021-08-26] MEDS: ASCORBIC ACID 500 MG TAB PO SCH (08:36)
[2021-08-26] MEDS: GLIPIZIDE 5 MG TAB ER PO SCH (08:39)
[2021-08-26] MEDS: METOPROLOL SUCCINATE 25 MG TAB XL PO SCH (08:43)
[2021-08-26] MEDS: FUROSEMIDE INJ 10 MG/ML 4 ML VIAL IV SCH (08:43)
[2021-08-26] MEDS: ACETAMINOPHEN 325 MG TAB PO PRN ×3 (09:37→21:00)
[2021-08-26] MEDS ORDERED: FUROSEMIDE INJ 10 MG/ML 4 ML VIAL IV ONE (17:00)
[2021-08-26] MEDS ORDERED: VASOPRESSIN 60 UNIT in DEXTROSE 5% 50ML 57 ML IV PRN (17:00)
[2021-08-26] MEDS ORDERED: FUROSEMIDE INJ 10 MG/ML 4 ML VIAL ONE (17:04)
[2021-08-26] MEDS: GABAPENTIN 100 MG CAP PO SCH (20:59)
[2021-08-26] MEDS: SIMVASTATIN 40 MG TAB PO SCH (21:00)
[2021-08-27] VITALS (25 sets, daily range): BP systolic 80–145; BP diastolic 44–114
[2021-08-27 05:47] LABS: BASOPHILS # (AUTO) 0.1 (0.0-0.1); BASOPHILS % 0.5 % (0.0-1.0); EOSINOPHILS # (AUTO) 0.4 (0.0-0.4); EOSINOPHILS % 3.3 % (0.0-6.0); HEMATOCRIT 28.4 % (38.2-49.6); HEMOGLOBIN 8.5 g/dL (14.0-18.0); LYMPHOCYTES # (AUTO) 1.3 (1.0-3.2); LYMPHOCYTES % 9.9 % (18.0-39.1); MEAN CORPUSCULAR HEMOGLOBIN 25.2 pg (28-32); MEAN CORPUSCULAR HGB CONC 29.9 g/dL (31-35); MEAN CORPUSCULAR VOLUME 84.3 fL (81-99); MONOCYTES # (AUTO) 1.4 (0.2-0.8); MONOCYTES % 10.6 % (4.4-11.3); NEUTROPHILS # (AUTO) 9.6 (2.1-6.9); NEUTROPHILS % 75.2 % (38.7-80.0); PLATELET COUNT 259 x10e3/uL (140-360); RED BLOOD COUNT 3.37 x10e6/uL (4.3-5.7); RED CELL DISTRIBUTION WIDTH 17.2 % (11.7-14.4)
[2021-08-27 06:13] LABS: ALBUMIN 2.3 g/dL (3.5-5.0); ALBUMIN/GLOBULIN RATIO 0.6 (0.8-2.0); ANION GAP 15.5 mmol/L (8-16); CALCIUM 8.7 mg/dL (8.4-10.2); CREATININE, SERUM 1.06 mg/dL (0.72-1.25); POTASSIUM 3.5 mmol/L (3.5-5.1)
[2021-08-27] MEDS: PANTOPRAZOLE SOD 40 MG TABEC PO SCH (08:40)
[2021-08-27] MEDS: SUCRALFATE 1 GM TAB PO SCH ×3 (08:40→16:33)
[2021-08-27] MEDS: GLIPIZIDE 5 MG TAB ER PO SCH (08:41)
[2021-08-27] MEDS: DULOXETINE HCL 30 MG DELAYED RELEASE PO SCH ×2 (08:43→16:33)
[2021-08-27] MEDS: FUROSEMIDE INJ 10 MG/ML 4 ML VIAL IV SCH (08:43)
[2021-08-27] MEDS: ZINC SULFATE 50 MG CAP PO SCH (08:44)
[2021-08-27] MEDS: METOPROLOL SUCCINATE 25 MG TAB XL PO SCH (08:44)
[2021-08-27] MEDS: BENZONATATE 100 MG CAP PO SCH ×3 (08:44→20:58)
[2021-08-27] MEDS: ASCORBIC ACID 500 MG TAB PO SCH (08:44)
[2021-08-27] MEDS: FERROUS SULFATE 325 MG TAB PO SCH ×2 (08:44→16:33)
[2021-08-27] MEDS: TAMSULOSIN HCL 0.4 MG CAP PO SCH (08:44)
[2021-08-27] MEDS ORDERED: POTASSIUM CHLORIDE 20MEQ/100ML 200 ML IV ONE (09:15)
[2021-08-27] MEDS: INSULIN LISPRO 100 UNIT/1 ML 3ML VIAL SQ SCH ×4 (09:24→21:04)
[2021-08-27] MEDS ORDERED: SODIUM CHLORIDE 0.9% 250ML 250 ML ONE (10:17)
[2021-08-27] MEDS ORDERED: FUROSEMIDE INJ 10 MG/ML 4 ML VIAL IV ONE (18:00)
[2021-08-27] MEDS: ALBUTEROL/IPRATROPIUM 3 ML NEB NEB PRN (18:30)
[2021-08-27] MEDS: GABAPENTIN 100 MG CAP PO SCH (20:58)
[2021-08-27] MEDS: SIMVASTATIN 40 MG TAB PO SCH (20:58)
[2021-08-27] MEDS: HYDROXYZINE HCL 25 MG TAB PO PRN (20:58)
[2021-08-28] VITALS (23 sets, daily range): BP systolic 95–134; BP diastolic 50–112
[2021-08-28 06:11] LABS: BASOPHILS # (AUTO) 0.1 (0.0-0.1); BASOPHILS % 0.3 % (0.0-1.0); EOSINOPHILS # (AUTO) 0.2 (0.0-0.4); EOSINOPHILS % 0.9 % (0.0-6.0); HEMATOCRIT 28.9 % (38.2-49.6); LYMPHOCYTES # (AUTO) 1.1 (1.0-3.2); LYMPHOCYTES % 6.3 % (18.0-39.1); MEAN CORPUSCULAR HEMOGLOBIN 25.6 pg (28-32); MEAN CORPUSCULAR HGB CONC 31.1 g/dL (31-35); MEAN CORPUSCULAR VOLUME 82.3 fL (81-99); MONOCYTES # (AUTO) 1.7 (0.2-0.8); MONOCYTES % 9.7 % (4.4-11.3); NEUTROPHILS # (AUTO) 14.2 (2.1-6.9); NEUTROPHILS % 82.2 % (38.7-80.0); PLATELET COUNT 296 x10e3/uL (140-360); RED BLOOD COUNT 3.51 x10e6/uL (4.3-5.7)
[2021-08-28 06:41] LABS: ALBUMIN 2.3 g/dL (3.5-5.0); ALBUMIN/GLOBULIN RATIO 0.5 (0.8-2.0); ANION GAP 16.7 mmol/L (8-16); CALCIUM 8.9 mg/dL (8.4-10.2); CREATININE, SERUM 1.13 mg/dL (0.72-1.25); POTASSIUM 3.7 mmol/L (3.5-5.1)
[2021-08-28] MEDS: FERROUS SULFATE 325 MG TAB PO SCH ×2 (07:56→16:45)
[2021-08-28] MEDS: PANTOPRAZOLE SOD 40 MG TABEC PO SCH (07:56)
[2021-08-28] MEDS: METOPROLOL SUCCINATE 25 MG TAB XL PO SCH (07:56)
[2021-08-28] MEDS: GLIPIZIDE 5 MG TAB ER PO SCH (07:56)
[2021-08-28] MEDS: ZINC SULFATE 50 MG CAP PO SCH (07:56)
[2021-08-28] MEDS: ASCORBIC ACID 500 MG TAB PO SCH (07:56)
[2021-08-28] MEDS: DULOXETINE HCL 30 MG DELAYED RELEASE PO SCH ×2 (07:56→16:45)
[2021-08-28] MEDS: TAMSULOSIN HCL 0.4 MG CAP PO SCH (07:56)
[2021-08-28] MEDS: FUROSEMIDE INJ 10 MG/ML 4 ML VIAL IV SCH ×4 (07:56→17:00)
[2021-08-28] MEDS: BENZONATATE 100 MG CAP PO SCH ×3 (07:56→21:55)
[2021-08-28] MEDS: SUCRALFATE 1 GM TAB PO SCH ×3 (07:56→15:56)
[2021-08-28] MEDS: INSULIN LISPRO 100 UNIT/1 ML 3ML VIAL SQ SCH ×4 (07:57→21:00)
[2021-08-28] MEDS ORDERED: FUROSEMIDE INJ 10 MG/ML 4 ML VIAL IV NR ×2 (09:00→18:00)
[2021-08-28] MEDS: ALBUMIN 25% 25GM 100ML 0.25 GM/ML BTL IV SCH ×2 (09:33→14:19)
[2021-08-28] MEDS: GABAPENTIN 100 MG CAP PO SCH (21:55)
[2021-08-28] MEDS: SIMVASTATIN 40 MG TAB PO SCH (21:55)
[2021-08-29] VITALS (24 sets, daily range): BP systolic 89–133; BP diastolic 45–82
[2021-08-29 05:51] LABS: BASOPHILS # (AUTO) 0.1 (0.0-0.1); BASOPHILS % 0.3 % (0.0-1.0); EOSINOPHILS # (AUTO) 0.2 (0.0-0.4); HEMATOCRIT 27.7 % (38.2-49.6); HEMOGLOBIN 8.5 g/dL (14.0-18.0); LYMPHOCYTES % 6.1 % (18.0-39.1); MEAN CORPUSCULAR HEMOGLOBIN 25.5 pg (28-32); MEAN CORPUSCULAR HGB CONC 30.7 g/dL (31-35); MEAN CORPUSCULAR VOLUME 83.2 fL (81-99); MONOCYTES # (AUTO) 1.8 (0.2-0.8); MONOCYTES % 10.4 % (4.4-11.3); NEUTROPHILS # (AUTO) 13.8 (2.1-6.9); NEUTROPHILS % 81.5 % (38.7-80.0); PLATELET COUNT 278 x10e3/uL (140-360); RED BLOOD COUNT 3.33 x10e6/uL (4.3-5.7); RED CELL DISTRIBUTION WIDTH 16.7 % (11.7-14.4)
[2021-08-29 06:17] LABS: ALBUMIN 2.7 g/dL (3.5-5.0); ALBUMIN/GLOBULIN RATIO 0.7 (0.8-2.0); ANION GAP 16.5 mmol/L (8-16); CALCIUM 8.5 mg/dL (8.4-10.2); CREATININE, SERUM 1.3 mg/dL (0.72-1.25); POTASSIUM 3.5 mmol/L (3.5-5.1)
[2021-08-29] MEDS: SUCRALFATE 1 GM TAB PO SCH ×3 (07:30→16:37)
[2021-08-29] MEDS: PANTOPRAZOLE SOD 40 MG TABEC PO SCH ×2 (07:30→09:42)
[2021-08-29] MEDS: INSULIN LISPRO 100 UNIT/1 ML 3ML VIAL SQ SCH ×4 (07:30→21:00)
[2021-08-29] MEDS: DULOXETINE HCL 30 MG DELAYED RELEASE PO SCH ×3 (07:58→16:37)
[2021-08-29] MEDS: GLIPIZIDE 5 MG TAB ER PO SCH ×2 (07:58→09:42)
[2021-08-29] MEDS: TAMSULOSIN HCL 0.4 MG CAP PO SCH ×2 (07:58→09:42)
[2021-08-29] MEDS: FERROUS SULFATE 325 MG TAB PO SCH ×3 (07:58→16:37)
[2021-08-29] MEDS: BENZONATATE 100 MG CAP PO SCH ×4 (07:59→21:00)
[2021-08-29] MEDS: ZINC SULFATE 50 MG CAP PO SCH ×2 (07:59→09:43)
[2021-08-29] MEDS: ASCORBIC ACID 500 MG TAB PO SCH ×2 (07:59→09:43)
[2021-08-29] MEDS: METOPROLOL SUCCINATE 25 MG TAB XL PO SCH ×2 (07:59→09:42)
[2021-08-29] MEDS: FUROSEMIDE INJ 10 MG/ML 4 ML VIAL IV SCH ×2 (08:13→16:37)
[2021-08-29] MEDS: ACETAMINOPHEN 325 MG TAB PO PRN (20:10)
[2021-08-29] MEDS: GABAPENTIN 100 MG CAP PO SCH (21:00)
[2021-08-29] MEDS: SIMVASTATIN 40 MG TAB PO SCH (21:00)
[2021-08-30] VITALS (23 sets, daily range): BP systolic 91–130; BP diastolic 45–84
[2021-08-30 06:27] LABS: BASOPHILS # (AUTO) 0.1 (0.0-0.1); BASOPHILS % 0.3 % (0.0-1.0); EOSINOPHILS # (AUTO) 0.2 (0.0-0.4); EOSINOPHILS % 1.2 % (0.0-6.0); HEMATOCRIT 28.4 % (38.2-49.6); HEMOGLOBIN 8.9 g/dL (14.0-18.0); LYMPHOCYTES # (AUTO) 1.1 (1.0-3.2); LYMPHOCYTES % 6.4 % (18.0-39.1); MEAN CORPUSCULAR HEMOGLOBIN 25.6 pg (28-32); MEAN CORPUSCULAR HGB CONC 31.3 g/dL (31-35); MEAN CORPUSCULAR VOLUME 81.8 fL (81-99); MONOCYTES # (AUTO) 1.9 (0.2-0.8); MONOCYTES % 10.9 % (4.4-11.3); NEUTROPHILS # (AUTO) 14.3 (2.1-6.9); NEUTROPHILS % 80.5 % (38.7-80.0); PLATELET COUNT 305 x10e3/uL (140-360); RED BLOOD COUNT 3.47 x10e6/uL (4.3-5.7); RED CELL DISTRIBUTION WIDTH 16.7 % (11.7-14.4)
[2021-08-30 06:47] LABS: ALBUMIN 2.4 g/dL (3.5-5.0); ALBUMIN/GLOBULIN RATIO 0.5 (0.8-2.0); ANION GAP 18.4 mmol/L (8-16); CALCIUM 9.4 mg/dL (8.4-10.2); CREATININE, SERUM 1.36 mg/dL (0.72-1.25); POTASSIUM 3.4 mmol/L (3.5-5.1)
[2021-08-30] MEDS: PANTOPRAZOLE SOD 40 MG TABEC PO SCH (07:44)
[2021-08-30] MEDS: SUCRALFATE 1 GM TAB PO SCH ×3 (07:44→16:24)
[2021-08-30] MEDS: GLIPIZIDE 5 MG TAB ER PO SCH (07:46)
[2021-08-30] MEDS: INSULIN LISPRO 100 UNIT/1 ML 3ML VIAL SQ SCH ×4 (07:46→20:48)
[2021-08-30] MEDS: FERROUS SULFATE 325 MG TAB PO SCH ×2 (08:09→17:20)
[2021-08-30] MEDS: DULOXETINE HCL 30 MG DELAYED RELEASE PO SCH ×2 (08:10→17:20)
[2021-08-30] MEDS: ASCORBIC ACID 500 MG TAB PO SCH (08:10)
[2021-08-30] MEDS: ZINC SULFATE 50 MG CAP PO SCH (08:10)
[2021-08-30] MEDS: TAMSULOSIN HCL 0.4 MG CAP PO SCH (08:10)
[2021-08-30] MEDS: BENZONATATE 100 MG CAP PO SCH ×3 (08:10→20:45)
[2021-08-30] MEDS: METOPROLOL SUCCINATE 25 MG TAB XL PO SCH (08:11)
[2021-08-30] MEDS: FUROSEMIDE INJ 10 MG/ML 4 ML VIAL IV SCH ×2 (08:11→17:20)
[2021-08-30] MEDS ORDERED: POTASSIUM CHLORIDE 20 MEQ TAB CR PO NR (14:00)
[2021-08-30] MEDS: HYDROXYZINE HCL 25 MG TAB PO SCH (20:45)
[2021-08-30] MEDS: SIMVASTATIN 40 MG TAB PO SCH (20:45)
[2021-08-30] MEDS: GABAPENTIN 100 MG CAP PO SCH (20:45)
[2021-08-31] VITALS (11 sets, daily range): BP systolic 89–119; BP diastolic 56–64
[2021-08-31 05:32] LABS: BASOPHILS # (AUTO) 0.1 (0.0-0.1); BASOPHILS % 0.3 % (0.0-1.0); EOSINOPHILS # (AUTO) 0.1 (0.0-0.4); EOSINOPHILS % 0.4 % (0.0-6.0); HEMATOCRIT 29.2 % (38.2-49.6); HEMOGLOBIN 8.9 g/dL (14.0-18.0); LYMPHOCYTES # (AUTO) 1.2 (1.0-3.2); LYMPHOCYTES % 6.7 % (18.0-39.1); MEAN CORPUSCULAR HEMOGLOBIN 25.1 pg (28-32); MEAN CORPUSCULAR HGB CONC 30.5 g/dL (31-35); MEAN CORPUSCULAR VOLUME 82.3 fL (81-99); MONOCYTES # (AUTO) 2.1 (0.2-0.8); MONOCYTES % 11.4 % (4.4-11.3); NEUTROPHILS # (AUTO) 14.7 (2.1-6.9); NEUTROPHILS % 80.5 % (38.7-80.0); PLATELET COUNT 332 x10e3/uL (140-360); RED BLOOD COUNT 3.55 x10e6/uL (4.3-5.7); RED CELL DISTRIBUTION WIDTH 16.3 % (11.7-14.4)
[2021-08-31 05:51] LABS: ALBUMIN 2.4 g/dL (3.5-5.0); ALBUMIN/GLOBULIN RATIO 0.5 (0.8-2.0); ANION GAP 19.7 mmol/L (8-16); CALCIUM 9.1 mg/dL (8.4-10.2); POTASSIUM 3.7 mmol/L (3.5-5.1)
[2021-08-31 06:49] LABS: CREATININE, SERUM 1.69 mg/dL (0.72-1.25)
[2021-08-31] MEDS: PANTOPRAZOLE SOD 40 MG TABEC PO SCH (07:55)
[2021-08-31] MEDS: SUCRALFATE 1 GM TAB PO SCH ×3 (07:55→16:33)
[2021-08-31] MEDS: INSULIN LISPRO 100 UNIT/1 ML 3ML VIAL SQ SCH ×4 (07:56→21:17)
[2021-08-31] MEDS: ASCORBIC ACID 500 MG TAB PO SCH (08:35)
[2021-08-31] MEDS: FUROSEMIDE INJ 10 MG/ML 4 ML VIAL IV SCH (08:35)
[2021-08-31] MEDS: TAMSULOSIN HCL 0.4 MG CAP PO SCH (08:35)
[2021-08-31] MEDS: BENZONATATE 100 MG CAP PO SCH ×3 (08:35→21:16)
[2021-08-31] MEDS: GLIPIZIDE 5 MG TAB ER PO SCH (08:35)
[2021-08-31] MEDS: DULOXETINE HCL 30 MG DELAYED RELEASE PO SCH ×2 (08:35→16:33)
[2021-08-31] MEDS: FERROUS SULFATE 325 MG TAB PO SCH ×2 (08:35→16:33)
[2021-08-31] MEDS: ZINC SULFATE 50 MG CAP PO SCH (08:36)
[2021-08-31] MEDS: METOPROLOL SUCCINATE 25 MG TAB XL PO SCH (08:36)
[2021-08-31] MEDS: POTASSIUM CHLORIDE 20 MEQ TAB CR PO SCH (08:37)
[2021-08-31] MEDS: HYDROXYZINE HCL 25 MG TAB PO SCH (21:16)
[2021-08-31] MEDS: GABAPENTIN 100 MG CAP PO SCH (21:16)
[2021-08-31] MEDS: SIMVASTATIN 40 MG TAB PO SCH (21:16)
[2021-09-01] VITALS (8 sets, daily range): BP systolic 94–112; BP diastolic 56–78
[2021-09-01 06:24] LABS: ANION GAP 18.5 mmol/L (8-16); CREATININE, SERUM 1.64 mg/dL (0.72-1.25); POTASSIUM 3.5 mmol/L (3.5-5.1)
[2021-09-01] MEDS: INSULIN LISPRO 100 UNIT/1 ML 3ML VIAL SQ SCH ×4 (07:30→21:03)
[2021-09-01] MEDS: PANTOPRAZOLE SOD 40 MG TABEC PO SCH (08:29)
[2021-09-01] MEDS: SUCRALFATE 1 GM TAB PO SCH ×2 (08:42→11:30)
[2021-09-01] MEDS: GLIPIZIDE 5 MG TAB ER PO SCH (08:46)
[2021-09-01] MEDS: ZINC SULFATE 50 MG CAP PO SCH (10:09)
[2021-09-01] MEDS: FERROUS SULFATE 325 MG TAB PO SCH ×2 (10:09→18:59)
[2021-09-01] MEDS: DULOXETINE HCL 30 MG DELAYED RELEASE PO SCH ×2 (10:10→18:59)
[2021-09-01] MEDS: TAMSULOSIN HCL 0.4 MG CAP PO SCH (10:11)
[2021-09-01] MEDS: BENZONATATE 100 MG CAP PO SCH ×3 (10:11→21:00)
[2021-09-01] MEDS: ASCORBIC ACID 500 MG TAB PO SCH (10:11)
[2021-09-01] MEDS: POTASSIUM CHLORIDE 20 MEQ TAB CR PO SCH (10:11)
[2021-09-01] MEDS: METOPROLOL SUCCINATE 25 MG TAB XL PO SCH (10:15)
[2021-09-01] MEDS: SUCRALFATE 1 GM/10 ML SUSP PO SCH ×2 (13:13→16:59)
[2021-09-01] MEDS: HYDROXYZINE HCL 25 MG TAB PO SCH (20:07)
[2021-09-01] MEDS: GABAPENTIN 100 MG CAP PO SCH (21:00)
[2021-09-01] MEDS: SIMVASTATIN 40 MG TAB PO SCH (21:00)
[2021-09-02] VITALS (14 sets, daily range): BP systolic 96–121; BP diastolic 60–81
[2021-09-02 06:44] LABS: ANION GAP 17.9 mmol/L (8-16); CREATININE, SERUM 1.4 mg/dL (0.72-1.25); POTASSIUM 3.9 mmol/L (3.5-5.1)
[2021-09-02] MEDS: INSULIN LISPRO 100 UNIT/1 ML 3ML VIAL SQ SCH ×4 (07:30→21:02)
[2021-09-02] MEDS: PANTOPRAZOLE SOD 40 MG TABEC PO SCH (09:17)
[2021-09-02] MEDS: SUCRALFATE 1 GM/10 ML SUSP PO SCH ×3 (09:17→17:39)
[2021-09-02] MEDS: ASCORBIC ACID 500 MG TAB PO SCH (11:12)
[2021-09-02] MEDS: DULOXETINE HCL 30 MG DELAYED RELEASE PO SCH ×2 (11:12→17:39)
[2021-09-02] MEDS: BENZONATATE 100 MG CAP PO SCH ×3 (11:13→21:14)
[2021-09-02] MEDS: POTASSIUM CHLORIDE 20 MEQ TAB CR PO SCH (11:13)
[2021-09-02] MEDS: FERROUS SULFATE 325 MG TAB PO SCH ×2 (11:13→17:39)
[2021-09-02] MEDS: TAMSULOSIN HCL 0.4 MG CAP PO SCH (11:14)
[2021-09-02] MEDS: ZINC SULFATE 50 MG CAP PO SCH (11:14)
[2021-09-02] MEDS: METOPROLOL SUCCINATE 25 MG TAB XL PO SCH (11:14)
[2021-09-02] MEDS: GLIPIZIDE 5 MG TAB ER PO SCH (11:30)
[2021-09-02] MEDS ORDERED: ZOLPIDEM TARTRATE 5 MG TAB PO PRN (21:00)
[2021-09-02] MEDS: HYDROXYZINE HCL 25 MG TAB PO SCH (21:14)
[2021-09-02] MEDS: SIMVASTATIN 40 MG TAB PO SCH (21:14)
[2021-09-02] MEDS: GABAPENTIN 100 MG CAP PO SCH (21:14)
[2021-09-03] VITALS (24 sets, daily range): BP systolic 88–122; BP diastolic 54–83
[2021-09-03 06:30] LABS: BASOPHILS # (AUTO) 0.1 (0.0-0.1); BASOPHILS % 0.4 % (0.0-1.0); EOSINOPHILS # (AUTO) 0.4 (0.0-0.4); EOSINOPHILS % 2.1 % (0.0-6.0); HEMATOCRIT 28.6 % (38.2-49.6); HEMOGLOBIN 8.8 g/dL (14.0-18.0); LYMPHOCYTES # (AUTO) 1.5 (1.0-3.2); LYMPHOCYTES % 9.1 % (18.0-39.1); MEAN CORPUSCULAR HEMOGLOBIN 24.8 pg (28-32); MEAN CORPUSCULAR HGB CONC 30.8 g/dL (31-35); MEAN CORPUSCULAR VOLUME 80.6 fL (81-99); MONOCYTES % 11.5 % (4.4-11.3); NEUTROPHILS # (AUTO) 12.8 (2.1-6.9); PLATELET COUNT 324 x10e3/uL (140-360); RED BLOOD COUNT 3.55 x10e6/uL (4.3-5.7); RED CELL DISTRIBUTION WIDTH 16.5 % (11.7-14.4)
[2021-09-03 07:02] LABS: ALBUMIN/GLOBULIN RATIO 0.4 (0.8-2.0); ANION GAP 16.3 mmol/L (8-16); CREATININE, SERUM 1.41 mg/dL (0.72-1.25); POTASSIUM 4.3 mmol/L (3.5-5.1)
[2021-09-03] MEDS: INSULIN LISPRO 100 UNIT/1 ML 3ML VIAL SQ SCH ×4 (07:30→21:00)
[2021-09-03] MEDS: PANTOPRAZOLE SOD 40 MG TABEC PO SCH (08:55)
[2021-09-03] MEDS: FERROUS SULFATE 325 MG TAB PO SCH ×2 (08:55→17:00)
[2021-09-03] MEDS: FUROSEMIDE 40 MG TAB PO SCH (08:55)
[2021-09-03] MEDS: DULOXETINE HCL 30 MG DELAYED RELEASE PO SCH ×2 (08:55→17:00)
[2021-09-03] MEDS: SUCRALFATE 1 GM/10 ML SUSP PO SCH ×3 (08:55→16:30)
[2021-09-03] MEDS: TAMSULOSIN HCL 0.4 MG CAP PO SCH (08:55)
[2021-09-03] MEDS: GLIPIZIDE 5 MG TAB ER PO SCH (08:55)
[2021-09-03] MEDS: BENZONATATE 100 MG CAP PO SCH ×3 (08:56→21:06)
[2021-09-03] MEDS: ASCORBIC ACID 500 MG TAB PO SCH (08:56)
[2021-09-03] MEDS: ZINC SULFATE 50 MG CAP PO SCH (08:56)
[2021-09-03] MEDS: POTASSIUM CHLORIDE 20 MEQ TAB CR PO SCH (08:56)
[2021-09-03] MEDS: METOPROLOL SUCCINATE 25 MG TAB XL PO SCH (08:56)
[2021-09-03] MEDS: PIPERACILLIN/TAZOBACTAM 3.375 GM in SODIUM CHLORIDE 0.9% 50ML 50 ML IV SCH ×2 (09:18→17:50)
[2021-09-03] MEDS ORDERED: EPOETIN ALFA-EPBX 10,000 UNIT/ML VIAL SC ONE (09:30)
[2021-09-03] MEDS: ALBUTEROL/IPRATROPIUM 3 ML NEB NEB PRN (11:25)
[2021-09-03] MEDS: GABAPENTIN 100 MG CAP PO SCH (21:06)
[2021-09-03] MEDS: HYDROXYZINE HCL 25 MG TAB PO SCH (21:06)
[2021-09-03] MEDS: SIMVASTATIN 40 MG TAB PO SCH (21:06)
[2021-09-04] VITALS (24 sets, daily range): BP systolic 80–126; BP diastolic 52–77
[2021-09-04] MEDS: PIPERACILLIN/TAZOBACTAM 3.375 GM in SODIUM CHLORIDE 0.9% 50ML 50 ML IV SCH ×3 (01:00→17:16)
[2021-09-04 04:58] LABS: BASOPHILS # (AUTO) 0.1 (0.0-0.1); BASOPHILS % 0.4 % (0.0-1.0); EOSINOPHILS # (AUTO) 0.2 (0.0-0.4); EOSINOPHILS % 1.1 % (0.0-6.0); HEMATOCRIT 29.8 % (38.2-49.6); HEMOGLOBIN 8.8 g/dL (14.0-18.0); LYMPHOCYTES # (AUTO) 1.2 (1.0-3.2); LYMPHOCYTES % 6.3 % (18.0-39.1); MEAN CORPUSCULAR HEMOGLOBIN 24.6 pg (28-32); MEAN CORPUSCULAR HGB CONC 29.5 g/dL (31-35); MEAN CORPUSCULAR VOLUME 83.2 fL (81-99); MONOCYTES % 10.2 % (4.4-11.3); PLATELET COUNT 394 x10e3/uL (140-360); RED BLOOD COUNT 3.58 x10e6/uL (4.3-5.7); RED CELL DISTRIBUTION WIDTH 16.7 % (11.7-14.4)
[2021-09-04 05:27] LABS: ALBUMIN/GLOBULIN RATIO 0.4 (0.8-2.0); ANION GAP 18.6 mmol/L (8-16); CALCIUM 9.1 mg/dL (8.4-10.2); CREATININE, SERUM 1.61 mg/dL (0.72-1.25); POTASSIUM 4.6 mmol/L (3.5-5.1)
[2021-09-04] MEDS: INSULIN LISPRO 100 UNIT/1 ML 3ML VIAL SQ SCH ×4 (07:30→21:29)
[2021-09-04] MEDS: ALBUTEROL/IPRATROPIUM 3 ML NEB NEB PRN (08:21)
[2021-09-04] MEDS: POTASSIUM CHLORIDE 20 MEQ TAB CR PO SCH (08:54)
[2021-09-04] MEDS: TAMSULOSIN HCL 0.4 MG CAP PO SCH (08:54)
[2021-09-04] MEDS: GLIPIZIDE 5 MG TAB ER PO SCH (08:54)
[2021-09-04] MEDS: ZINC SULFATE 50 MG CAP PO SCH (08:54)
[2021-09-04] MEDS: ASCORBIC ACID 500 MG TAB PO SCH (08:54)
[2021-09-04] MEDS: DULOXETINE HCL 30 MG DELAYED RELEASE PO SCH ×2 (08:54→16:44)
[2021-09-04] MEDS: PANTOPRAZOLE SOD 40 MG TABEC PO SCH (08:54)
[2021-09-04] MEDS: FERROUS SULFATE 325 MG TAB PO SCH ×2 (08:54→16:44)
[2021-09-04] MEDS: BENZONATATE 100 MG CAP PO SCH ×3 (08:54→21:11)
[2021-09-04] MEDS: FUROSEMIDE 40 MG TAB PO SCH (08:54)
[2021-09-04] MEDS: SUCRALFATE 1 GM/10 ML SUSP PO SCH ×3 (08:54→15:35)
[2021-09-04] MEDS: METOPROLOL SUCCINATE 25 MG TAB XL PO SCH (08:55)
[2021-09-04] MEDS ORDERED: DIGOXIN INJ 0.25 MG/ML 2 ML AMP IV ONE (14:45)
[2021-09-04] MEDS: SIMVASTATIN 40 MG TAB PO SCH (21:11)
[2021-09-04] MEDS: GABAPENTIN 100 MG CAP PO SCH (21:11)
[2021-09-04] MEDS: HYDROXYZINE HCL 25 MG TAB PO SCH (21:26)
[2021-09-05] VITALS (25 sets, daily range): BP systolic 90–146; BP diastolic 53–79
[2021-09-05] MEDS: PIPERACILLIN/TAZOBACTAM 3.375 GM in SODIUM CHLORIDE 0.9% 50ML 50 ML IV SCH ×3 (00:56→17:28)
[2021-09-05 04:57] LABS: BASOPHILS # (AUTO) 0.1 (0.0-0.1); BASOPHILS % 0.3 % (0.0-1.0); EOSINOPHILS # (AUTO) 0.2 (0.0-0.4); EOSINOPHILS % 0.7 % (0.0-6.0); HEMATOCRIT 29.4 % (38.2-49.6); HEMOGLOBIN 8.6 g/dL (14.0-18.0); LYMPHOCYTES # (AUTO) 1.3 (1.0-3.2); LYMPHOCYTES % 5.3 % (18.0-39.1); MEAN CORPUSCULAR HEMOGLOBIN 24.6 pg (28-32); MEAN CORPUSCULAR HGB CONC 29.3 g/dL (31-35); MEAN CORPUSCULAR VOLUME 84.2 fL (81-99); MONOCYTES # (AUTO) 2.4 (0.2-0.8); MONOCYTES % 9.7 % (4.4-11.3); NEUTROPHILS # (AUTO) 20.6 (2.1-6.9); PLATELET COUNT 393 x10e3/uL (140-360); RED BLOOD COUNT 3.49 x10e6/uL (4.3-5.7); RED CELL DISTRIBUTION WIDTH 16.8 % (11.7-14.4)
[2021-09-05 05:21] LABS: ALBUMIN 1.9 g/dL (3.5-5.0); ALBUMIN/GLOBULIN RATIO 0.4 (0.8-2.0); ANION GAP 20.2 mmol/L (8-16); CALCIUM 8.9 mg/dL (8.4-10.2); CREATININE, SERUM 2.21 mg/dL (0.72-1.25); POTASSIUM 4.2 mmol/L (3.5-5.1)
[2021-09-05] MEDS: SUCRALFATE 1 GM/10 ML SUSP PO SCH ×3 (08:01→17:28)
[2021-09-05] MEDS: PANTOPRAZOLE SOD 40 MG TABEC PO SCH (08:02)
[2021-09-05] MEDS: FERROUS SULFATE 325 MG TAB PO SCH ×2 (08:26→17:28)
[2021-09-05] MEDS: BENZONATATE 100 MG CAP PO SCH ×2 (08:26→16:17)
[2021-09-05] MEDS: DULOXETINE HCL 30 MG DELAYED RELEASE PO SCH (08:26)
[2021-09-05] MEDS: TAMSULOSIN HCL 0.4 MG CAP PO SCH (08:26)
[2021-09-05] MEDS: GLIPIZIDE 5 MG TAB ER PO SCH (08:26)
[2021-09-05] MEDS: ASCORBIC ACID 500 MG TAB PO SCH (08:27)
[2021-09-05] MEDS: ZINC SULFATE 50 MG CAP PO SCH (08:27)
[2021-09-05] MEDS: METOPROLOL SUCCINATE 25 MG TAB XL PO SCH (08:27)
[2021-09-05] MEDS: INSULIN LISPRO 100 UNIT/1 ML 3ML VIAL SQ SCH ×5 (08:30→20:43)
[2021-09-05] MEDS: POTASSIUM CHLORIDE 20 MEQ TAB CR PO SCH (09:00)
[2021-09-05] MEDS: DEXTROSE 5% 1,000 ML IV SCH (16:17)
[2021-09-05] MEDS: HYDROXYZINE HCL 25 MG TAB PO SCH (20:48)
[2021-09-05] MEDS: METOPROLOL TARTRATE 25 MG TAB PO SCH (20:49)
[2021-09-05] MEDS: SIMVASTATIN 40 MG TAB PO SCH (21:10)
[2021-09-05] MEDS: GABAPENTIN 100 MG CAP PO SCH (21:13)
[2021-09-06] VITALS (26 sets, daily range): BP systolic 101–125; BP diastolic 55–74
[2021-09-06] MEDS: PIPERACILLIN/TAZOBACTAM 3.375 GM in SODIUM CHLORIDE 0.9% 50ML 50 ML IV SCH ×3 (00:40→18:01)
[2021-09-06] MEDS: DEXTROSE 5% 1,000 ML IV SCH (04:46)
[2021-09-06 04:49] LABS: BASOPHILS # (AUTO) 0.1 (0.0-0.1); BASOPHILS % 0.3 % (0.0-1.0); EOSINOPHILS # (AUTO) 0.4 (0.0-0.4); EOSINOPHILS % 1.4 % (0.0-6.0); HEMATOCRIT 29.7 % (38.2-49.6); HEMOGLOBIN 8.6 g/dL (14.0-18.0); LYMPHOCYTES # (AUTO) 1.2 (1.0-3.2); LYMPHOCYTES % 4.6 % (18.0-39.1); MEAN CORPUSCULAR HEMOGLOBIN 24.4 pg (28-32); MEAN CORPUSCULAR VOLUME 84.4 fL (81-99); MONOCYTES # (AUTO) 2.1 (0.2-0.8); MONOCYTES % 8.1 % (4.4-11.3); NEUTROPHILS # (AUTO) 22.2 (2.1-6.9); NEUTROPHILS % 84.4 % (38.7-80.0); PLATELET COUNT 405 x10e3/uL (140-360); RED BLOOD COUNT 3.52 x10e6/uL (4.3-5.7); RED CELL DISTRIBUTION WIDTH 16.7 % (11.7-14.4)
[2021-09-06 05:12] LABS: ALBUMIN 1.9 g/dL (3.5-5.0); ALBUMIN/GLOBULIN RATIO 0.4 (0.8-2.0); ANION GAP 17.9 mmol/L (8-16); CALCIUM 8.8 mg/dL (8.4-10.2); CREATININE, SERUM 1.98 mg/dL (0.72-1.25); POTASSIUM 3.9 mmol/L (3.5-5.1)
[2021-09-06 07:14] LABS: EOSINOPHILS % (MANUAL) 2 % (0-7); LYMPHOCYTES % (MANUAL) 4 % (19-48); MONOCYTES % (MANUAL) 7 % (3.4-9.0); NEUTROPHILS % (MANUAL) 87 % (40-74); PLATELET ESTIMATE ADEQUATE; PLATELET MORPHOLOGY COMMENT NORMAL; RBC MORPHOLOGY COMMENT NORMAL
[2021-09-06] MEDS: INSULIN LISPRO 100 UNIT/1 ML 3ML VIAL SQ SCH ×4 (08:30→21:15)
[2021-09-06] MEDS: SUCRALFATE 1 GM/10 ML SUSP PO SCH ×3 (08:48→16:30)
[2021-09-06] MEDS: FERROUS SULFATE 325 MG TAB PO SCH (08:56)
[2021-09-06] MEDS: ASCORBIC ACID 500 MG TAB PO SCH (08:56)
[2021-09-06] MEDS: METOPROLOL TARTRATE 25 MG TAB PO SCH ×2 (08:57→21:00)
[2021-09-06] MEDS: ZINC SULFATE 50 MG CAP PO SCH (08:58)
[2021-09-06] MEDS: FERROUS SULFATE 300 MG/5 ML LIQD NG SCH (17:00)
[2021-09-06] MEDS ORDERED: DEXMEDETOMIDINE 400MCG/NS100ML 100 ML IV PRN (17:30)
[2021-09-06] MEDS: HYDROXYZINE HCL 25 MG TAB PO SCH (21:00)
[2021-09-06] MEDS: GABAPENTIN 100 MG CAP PO SCH (21:00)
[2021-09-06] MEDS: SIMVASTATIN 40 MG TAB PO SCH (21:00)
[2021-09-06] MEDS: INSULIN GLARGINE 100 UNITS/ML VIAL SQ SCH (21:15)
[2021-09-07] VITALS (30 sets, daily range): BP systolic 62–112; BP diastolic 51–94
[2021-09-07] MEDS: PIPERACILLIN/TAZOBACTAM 3.375 GM in SODIUM CHLORIDE 0.9% 50ML 50 ML IV SCH ×4 (01:10→20:37)
[2021-09-07] MEDS: SUCRALFATE 1 GM/10 ML SUSP PO SCH ×3 (07:30→15:30)
[2021-09-07] MEDS: INSULIN LISPRO 100 UNIT/1 ML 3ML VIAL SQ SCH ×5 (08:00→21:00)
[2021-09-07] MEDS: ZINC SULFATE 50 MG CAP PO SCH (09:00)
[2021-09-07] MEDS: FERROUS SULFATE 300 MG/5 ML LIQD NG SCH ×2 (09:00→17:00)
[2021-09-07] MEDS: CLOTRIMAZOLE 1% CR 15 GM TOP SCH ×2 (09:00→19:02)
[2021-09-07] MEDS: ASCORBIC ACID 500 MG TAB PO SCH (09:00)
[2021-09-07] MEDS: METOPROLOL TARTRATE 25 MG TAB PO SCH (09:00)
[2021-09-07] MEDS ORDERED: SODIUM CHLORIDE 0.9% 1000ML 1,000 ML ONE (09:02)
[2021-09-07] MEDS: FENTANYL 2000MCG/NS 250 250 ML IV SCH ×2 (09:25→18:29)
[2021-09-07] MEDS ORDERED: PROPOFOL IV EMULSION 10MG/ML 100 ML IV SCH (09:45)
[2021-09-07] MEDS ORDERED: NOREPINEPHRINE 8 MG/D5W 250 ML 250 ML IV SCH (11:00)
[2021-09-07 11:13] LABS: ALBUMIN 1.8 g/dL (3.5-5.0); ALBUMIN/GLOBULIN RATIO 0.4 (0.8-2.0); ANION GAP 20.3 mmol/L (8-16); CALCIUM 9.1 mg/dL (8.4-10.2); CREATININE, SERUM 2.13 mg/dL (0.72-1.25); POTASSIUM 4.3 mmol/L (3.5-5.1)
[2021-09-07] MEDS ORDERED: LIDOCAINE HCL 2% LOCAL 20 ML VIAL ONE (11:31)
[2021-09-07] MEDS ORDERED: MIDAZOLAM HCL 2 MG/2 ML VIAL ONE ×2 (11:47→13:56)
[2021-09-07 12:57] LABS: ABG HCO3 35 mmol/L (22-26); ABG PCO2 62 mmHg (35-45); ABG PH 7.36 (7.35-7.45); ABG PO2 170 mmHg (80-105); ABG TCO2 37
[2021-09-07] MEDS ORDERED: ETOMIDATE 2 MG/ML 10 ML INJ IV ONE (13:56)
[2021-09-07] MEDS ORDERED: SUCCINYLCHOLINE CHLORIDE 20 MG/ML 10ML VIAL ONE (13:56)
[2021-09-07] MEDS ORDERED: AMIODARONE 900MG 500 ML IV ONE (14:00)
[2021-09-07] MEDS ORDERED: CALCIUM CHLORIDE 10% 1.36 MEQ/ML 10ML SYR IV ONE (16:46)
[2021-09-07] MEDS ORDERED: EPINEPHRINE HCL SYRINGE ONE (16:46)
[2021-09-07] MEDS ORDERED: SODIUM BICARBONATE 8.4% INJ 50 ML SYR ONE (16:46)
[2021-09-07] MEDS ORDERED: LINEZOLID 600 MG/D5W 300ML 300 ML IV SCH (20:00)
[2021-09-07] MEDS: HYDROXYZINE HCL 25 MG TAB PO SCH (20:33)
[2021-09-07] MEDS: SIMVASTATIN 40 MG TAB PO SCH (20:33)
[2021-09-07] MEDS: GABAPENTIN 100 MG CAP PO SCH (20:33)
[2021-09-07] MEDS: INSULIN GLARGINE 100 UNITS/ML VIAL SQ SCH (21:16)
[2021-09-07] MEDS ORDERED: ALBUMIN 25% 25GM 100ML 0.25 GM/ML BTL IV ONE (21:30)
[2021-09-07] MEDS ORDERED: VASOPRESSIN 60 UNIT in DEXTROSE 5% 50ML 57 ML IV PRN (21:30)
[2021-09-07] MEDS ORDERED: ALBUMIN 25% 25GM 100ML 200 ML ONE (21:32)
[2021-09-07] MEDS ORDERED: DEXTROSE 5% 50ML 50 ML IV ONE (22:01)
== END 2021-09-07 22:12 | disposition expired | DRG 853 ==
LOC: ER 18:32 → ERHOLD 23:36 → MED/SURG2 08-15 11:38 → ICU 08-25 15:01 → IMCU 08-30 21:23 → ICU 09-02 18:50
PROVIDERS: ADMIT Internal Medicine; ATTEND Internal Medicine
PROC: 4A023N7 Measurement of Cardiac Sampling and Pressure, Left Heart, Percutaneous Approach (ICD-10-PCS; 2021-08-22)
PROC: B2131ZZ Fluoroscopy of Multiple Coronary Artery Bypass Grafts using Low Osmolar Contrast (ICD-10-PCS; 2021-08-22)
PROC: B2111ZZ Fluoroscopy of Multiple Coronary Arteries using Low Osmolar Contrast (ICD-10-PCS; 2021-08-22)
PROC: B2181ZZ Fluoroscopy of Left Internal Mammary Bypass Graft using Low Osmolar Contrast (ICD-10-PCS; 2021-08-22)
PROC: 02PA3MZ Removal of Cardiac Lead from Heart, Percutaneous Approach (ICD-10-PCS; 2021-08-25)
PROC: 02HL3KZ Insertion of Defibrillator Lead into Left Ventricle, Percutaneous Approach (ICD-10-PCS; 2021-08-25)
PROC: 02HK3KZ Insertion of Defibrillator Lead into Right Ventricle, Percutaneous Approach (ICD-10-PCS; 2021-08-25)
PROC: 0JPT0PZ Removal of Cardiac Rhythm Related Device from Trunk Subcutaneous Tissue and Fascia, Open Approach (ICD-10-PCS; 2021-08-25)
PROC: 0JH609Z Insertion of Cardiac Resynchronization Defibrillator Pulse Generator into Chest Subcutaneous Tissue and Fascia, Open Approach (ICD-10-PCS; 2021-08-25)
PROC: 02HV33Z Insertion of Infusion Device into Superior Vena Cava, Percutaneous Approach (ICD-10-PCS; 2021-08-26)
PROC: 5A0935A Assistance with Respiratory Ventilation, Less than 24 Consecutive Hours, High Flow/Velocity Cannula (ICD-10-PCS; 2021-08-28)
PROC: 0BH18EZ Insertion of Endotracheal Airway into Trachea, Via Natural or Artificial Opening Endoscopic (ICD-10-PCS; principal; 2021-09-07)
PROC: 5A1935Z Respiratory Ventilation, Less than 24 Consecutive Hours (ICD-10-PCS; 2021-09-07)
PROC: 0B9D8ZX Drainage of Right Middle Lung Lobe, Via Natural or Artificial Opening Endoscopic, Diagnostic (ICD-10-PCS; 2021-09-07)
PROC: 0BJ08ZZ Inspection of Tracheobronchial Tree, Via Natural or Artificial Opening Endoscopic (ICD-10-PCS; 2021-09-07)
DX: A41.9 Sepsis, unspecified organism (principal); I50.23 Acute on chronic systolic (congestive) heart failure; J15.9 Unspecified bacterial pneumonia; R65.21 Severe sepsis with septic shock; J96.21 Acute and chronic respiratory failure with hypoxia; C34.11 Malignant neoplasm of upper lobe, right bronchus or lung; C77.1 Secondary and unspecified malignant neoplasm of intrathoracic lymph nodes; N17.9 Acute kidney failure, unspecified; I13.0 Hypertensive heart and chronic kidney disease with heart failure and stage 1 through stage 4 chronic kidney disease, or unspecified chronic kidney disease; I46.9 Cardiac arrest, cause unspecified; E78.5 Hyperlipidemia, unspecified; J43.9 Emphysema, unspecified; N18.2 Chronic kidney disease, stage 2 (mild); I25.5 Ischemic cardiomyopathy; I25.10 Atherosclerotic heart disease of native coronary artery without angina pectoris; I44.1 Atrioventricular block, second degree; Z95.0 Presence of cardiac pacemaker; I48.91 Unspecified atrial fibrillation; Z79.01 Long term (current) use of anticoagulants; Z86.16 Personal history of COVID-19; Z95.1 Presence of aortocoronary bypass graft; E11.22 Type 2 diabetes mellitus with diabetic chronic kidney disease; E11.65 Type 2 diabetes mellitus with hyperglycemia; K27.9 Peptic ulcer, site unspecified, unspecified as acute or chronic, without hemorrhage or perforation; D64.9 Anemia, unspecified; E88.09 Other disorders of plasma-protein metabolism, not elsewhere classified
CPT/HCPCS: 33224; 36415; 36569; 71045; 71250; 74018; 74230; 76604; 80048; 80053; 81001; 82550; 82553; 82728; 82805; 82948; 83605; 83880; 84484; 85025; 85610; 85730; 87040; 87086; 87205; 88112; 88305; 92950; 93005; 93306; 93459; 94640; 94660; 94799; 96372; 99152; 99153; 99285; C1760; C1763; C1769; C1777; C1882; C1894; C1900; J0171; J0330; J0456; J0690; J0696; J1160; J1580; J1644; J1815; J1940; J2001; J2020; J2250; J2543; J2930; J3010; J3370; J3410; J3480; J7030; J7040; J7050; J7070; P9047; Q9967; U0002